=== PATIENT | female | born 1985 | race Caucasian/White ===

== ENCOUNTER → 2018-10-18 14:07 | Outpatient (CLI) | payer OTHER, SELFPAY ==
--- NOTE | 2018-10-18 14:16 | US_ITS ---
STUDY: FIRST TRIMESTER OBSTETRICAL ULTRASOUND REASON FOR EXAM: Female, 33 years old. Determination of dates and size LMP: 08/21/2018 TECHNIQUE: Both transabdominal and transvaginal probes were used TECHNICAL QUALITY: Adequate. PRIOR ULTRASOUND: None. FINDINGS: The study shows a gravid uterus measuring 10.1 x 8.0 x 2.4 cm. It contains a gestational sac with good decidual reaction around. Within the sac is seen developing embryo with a heart rate of 170 bpm and a crown-rump length of 2.0 cm compatible with 8 weeks 4 days +/- 5 days and an expected date of delivery of 05/26/2019. Using the LMP the expected dates would be 05/28/2019. Both ovaries are visualized and they both demonstrate normal Doppler flow. The right measures 2.0 x 2.1 x 2.7 cm and the left 2.5 x 2.6 x 1.6 cm.. US/Transvaginal w/Preg US IMPRESSION: An early intrauterine at 8 weeks 4 days +/- 5 days with an expected date of delivery of 05/26/2019. Using the LMP the expected age would be 05/28/2019 Electronically Signed: Robert Verma MD at 6:17 EST Tel , Service support ,
== END ==
PROVIDERS: Referring Provider Obstetrics & Gynecology; Visit Provider Obstetrics & Gynecology
DX: Z34.90 Encounter for supervision of normal pregnancy, unspecified, unspecified trimester (principal)
CPT/HCPCS: 76817

== ENCOUNTER → 2018-10-22 13:29 | Outpatient (CLI) | payer OTHER, SELFPAY ==
[2018-10-22 12:12] VITALS: BMI 36.3
[2018-10-22 14:33] LABS: Absolute Lymphocyte Count 1.85 X10^3/ul (0.83-4.51); Absolute Neutrophil Count 6.2 X10^3/uL (2.0-7.7); Basophil# 0.03 X10^3/uL; Basophil% 0.3 % (0-1); Eosinophil# 0.07 X10^3/uL; Eosinophils% 0.8 % (0-5); Hematocrit 37.5 % (37-47); Hemoglobin 12.1 g/dl (12.0-15.0); Lymphocyte # 1.85 X10^3/ul (4.0); Lymphocyte % 21.4 % (19-41); Mean Corp Hgb Conc 32.3 g/gl (32-36); Mean Corpuscular Hgb 25.9 pg (27.0-32.0); Mean Corpuscular Volume 80.1 fL (81-99); Mean Platelet Vol. 10.6 fl (6.2-12.0); Monocyte# 0.52 X10^3/uL; Neutrophil # 6.16 X10^3/uL (2.7-7.7); Neutrophil % 71.4 % (47-70); Platelet Count 289 K/mm3 (150-450); RBC Distribution Width SD 40.7 fl (35.1-43.9); Red Blood Count 4.68 M/mm3 (4.2-5.4); White Blood Count 8.6 K/mm3 (4.4-11.0)
[2018-10-22 14:35] LABS: POSITIVE COUNT NO; POSITIVE DIFFERENTIAL NO; POSITIVE MORPHOLOGY NO
[2018-10-22 15:44] LABS: HIV - WCH Non-Reactive (Nonreactive); Rubella IgG 91.8 IU/mL
[2018-10-24 13:39] LABS: HEPATITIS B SURFACE AG Negative (Negative)
[2018-10-29 01:41] LABS: Rapid Plasmin Reagin (RPR) NONREACTIVE (NONREACTIVE)
== END ==
PROVIDERS: Referring Provider Obstetrics & Gynecology; Visit Provider Obstetrics & Gynecology
DX: Z34.80 Encounter for supervision of other normal pregnancy, unspecified trimester (principal)
CPT/HCPCS: 36415; 85025; 86592; 86703; 86762; 86850; 86900; 87340

== ENCOUNTER → 2018-10-22 18:20 | Outpatient (CLI) | payer OTHER, SELFPAY ==
[2018-10-22 12:12] VITALS: BMI 36.3
[2018-10-23 00:25] LABS: Chlamydia Trachomatis by PCR Negative (Negative); Neisserai gonorrhoeae by PCR Negative (Negative); Probe Check PASS; Sample Adequacy Control PASS; Specimen Processing Control PASS
[2018-10-28 16:11] LABS: HPV APTIMA, High Risk Negative (Negative)
== END ==
PROVIDERS: Referring Provider Obstetrics & Gynecology; Visit Provider Obstetrics & Gynecology
DX: Z34.80 Encounter for supervision of other normal pregnancy, unspecified trimester (principal); Z12.4 Encounter for screening for malignant neoplasm of cervix
CPT/HCPCS: 87086; 87088; 87491; 87591; 87624; 88175; G0145

== ENCOUNTER → 2018-11-19 14:33 | Outpatient (CLI) | payer OTHER, SELFPAY ==
[2018-10-22 12:12] VITALS: BMI 36.3
== END ==
PROVIDERS: Referring Provider Obstetrics & Gynecology; Visit Provider Obstetrics & Gynecology
DX: Z34.81 Encounter for supervision of other normal pregnancy, first trimester (principal)

== ENCOUNTER → 2018-12-17 14:44 | Outpatient (CLI) | payer OTHER, SELFPAY ==
[2018-12-17 14:33] VITALS: BMI 36.3
== END ==
PROVIDERS: Referring Provider Nurse Practitioner Women's Health; Visit Provider Nurse Practitioner Women's Health
DX: Z36.9 Encounter for antenatal screening, unspecified (principal)
CPT/HCPCS: 36415

== ENCOUNTER → 2019-03-04 11:39 | Outpatient (CLI) | payer OTHER, SELFPAY ==
[2019-03-04 11:32] VITALS: BMI 36.4
[2019-03-04 12:30] LABS: Absolute Lymphocyte Count 1.33 X10^3/ul (0.83-4.51); Absolute Neutrophil Count 6.9 X10^3/uL (2.0-7.7); Basophil# 0.02 X10^3/uL; Basophil% 0.2 % (0-1); Eosinophil# 0.11 X10^3/uL; Eosinophils% 1.3 % (0-5); Hematocrit 32.8 % (37-47); Hemoglobin 10.9 g/dl (12.0-15.0); Lymphocyte # 1.33 X10^3/ul (4.0); Lymphocyte % 15.2 % (19-41); Mean Corp Hgb Conc 33.2 g/gl (32-36); Mean Corpuscular Hgb 26.7 pg (27.0-32.0); Mean Corpuscular Volume 80.2 fL (81-99); Mean Platelet Vol. 11.1 fl (6.2-12.0); Monocyte# 0.33 X10^3/uL; Monocyte% 3.8 % (0-10); Neutrophil # 6.93 X10^3/uL (2.7-7.7); Neutrophil % 79.3 % (47-70); POSITIVE COUNT NO; POSITIVE DIFFERENTIAL NO; POSITIVE MORPHOLOGY NO; Platelet Count 213 K/mm3 (150-450); RBC Distribution Width CV 14.4 % (11.6-14.6); RBC Distribution Width SD 41.7 fl (35.1-43.9); Red Blood Count 4.09 M/mm3 (4.2-5.4); White Blood Count 8.7 K/mm3 (4.4-11.0)
[2019-03-04 12:45] LABS: Glucose Challenge Gest 1H 50g 136 mg/dL (70-140)
== END ==
PROVIDERS: Visit Provider Obstetrics & Gynecology
DX: Z34.80 Encounter for supervision of other normal pregnancy, unspecified trimester (principal)
CPT/HCPCS: 36415; 82950; 85025

== ENCOUNTER → 2019-03-11 09:03 | Outpatient (CLI) | payer OTHER, SELFPAY ==
[2019-03-04 11:47] VITALS: BMI 36.4
[2019-03-11 10:53] LABS: Glucose GTT-Gestation. Fasting 74 mg/dL (<105)
[2019-03-11 10:55] LABS: Glucose GTT-Gestational 1 Hr 150 mg/dL (<190)
[2019-03-11 12:08] LABS: Glucose GTT-Gestational 2 Hr 145 mg/dL (<165)
[2019-03-11 13:24] LABS: Glucose GTT-Gestational 3 Hr 59 L (<145)
== END ==
PROVIDERS: Referring Provider Obstetrics & Gynecology; Visit Provider Obstetrics & Gynecology
DX: O99.810 Abnormal glucose complicating pregnancy (principal); Z3A.00 Weeks of gestation of pregnancy not specified
CPT/HCPCS: 36415; 82951; 82952

== ENCOUNTER → 2019-04-27 08:42 | Outpatient (CLI) | payer OTHER, SELFPAY ==
[2019-04-27 08:24] VITALS: BMI 36.4
[2019-04-27 10:18] LABS: Glucose Challenge Gest 1H 50g 111 mg/dL (70-140)
== END ==
PROVIDERS: Referring Provider Obstetrics & Gynecology; Visit Provider Obstetrics & Gynecology
DX: Z34.90 Encounter for supervision of normal pregnancy, unspecified, unspecified trimester (principal)
CPT/HCPCS: 36415; 82950

== ENCOUNTER → 2019-05-06 16:26 | Outpatient (CLI) | payer OTHER, SELFPAY ==
[2019-05-06 09:14] VITALS: BMI 36.4
[2019-05-06 17:29] LABS: Protein, Urine (Random) 119.1 mg/dL (<11.9); Protein:Creat Ratio 1561 mg/g CRE (0-200)
== END ==
PROVIDERS: Referring Provider Obstetrics & Gynecology; Visit Provider Obstetrics & Gynecology
DX: Z34.80 Encounter for supervision of other normal pregnancy, unspecified trimester (principal)
CPT/HCPCS: 82570; 84156; 87081

== ENCOUNTER 2019-05-10 13:30 | Inpatient (IN) | payer OTHER, SELFPAY ==
[2019-03-16 15:16] VITALS: BMI 36.4
[2019-05-10 11:37] VITALS: BMI 38.4
[2019-05-10 13:01] LABS: Protein, Urine (Random) 62.6 mg/dL (<11.9); Protein:Creat Ratio 2301 mg/g CRE (0-200)
[2019-05-10 13:16] LABS: Hematocrit 32.8 % (37-47); Hemoglobin 10.6 g/dL (12.0-15.0); Mean Corp Hgb Conc 32.3 g/dL (32-36); Mean Corpuscular Hgb 25.5 pg (27.0-32.0); Mean Platelet Vol. 13.4 fl (6.2-12.0); Platelet Count 171 K/mm3 (150-450); RBC Distribution Width CV 14.4 % (11.6-14.6); RBC Distribution Width SD 40.6 fl (35.1-43.9); Red Blood Count 4.15 M/mm3 (4.2-5.4); White Blood Count 8.5 K/mm3 (4.4-11.0)
[2019-05-10 13:38] LABS: AST(SGOT) 17 U/L (15-37); Alanine Aminotransfer ALT/SGPT 19 U/L (13-56); Creatinine, Serum 0.84 mg/dL (0.55-1.02); EST Glomerular Filtration Rate 82 mL/min (>60); Est Glom Filt Rate - Afr Amer 99 mL/min (>60); Uric Acid 7.8 mg/dL (2.6-6.0)
[2019-05-10 13:41] VITALS: BMI 38.2
[2019-05-10] MEDS: Lactated Ringers 1,000 ML 50 ML IV (13:45)
[2019-05-10] MEDS: Labetalol 200 MG Tablet PO (14:20)
[2019-05-10] MEDS: Magnesium Sulfate 20 GM/500 ML BAG IV (14:20)
[2019-05-10] MEDS: Oxytocin 30 units/NS 500 ml 30 UNITS/500 ML IV.SOLN IV (16:45)
[2019-05-10] MEDS: 0.9% Normal Saline 100 ML IV.SOLN. INTRA-UTER (17:30)
[2019-05-10] MEDS: Nalbuphine 10 MG/ML Ampul IV (18:00)
[2019-05-10] MEDS: NIFEdipine 30 MG Tablet PO (21:05)
[2019-05-10] MEDS: Acetaminophen 325 MG Tablet PO (21:44)
[2019-05-10] MEDS: Labetalol 200 MG Tablet 300 MG PO (21:48)
[2019-05-10] MEDS: 0.9% Saline Lock 10 ML Syringe IV (21:54)
[2019-05-10] MEDS: Ondansetron 4 MG/2 ML Vial IV (21:54)
--- NOTE | 2019-05-10 23:55 | PCM.HP.OB ---
- Problem List (1) Severe pre-eclampsia affecting first Status: Acute (2) Request for sterilization Status: Acute Comment: desires PPTL (3) macrosomia Status: Acute Qualifiers: Comment: repeat US in 4 weeks. Rpt 1 hr GCT WNL 04/27/19 (4) HSV-2 seropositive Status: Acute Comment: valtrex 36 wk (5) Anxiety Status: Acute Comment: no meds (6) Status: Acute Qualifiers: Comment: Low risk NIPT, AFP ordered. MFM US ordered 2 wk fu spine views AFP results negative (7) Supervision of other normal Status: Acute Comment: PRR OZ 05/28/19 PC Seymour Spouse:Yoni History Date of Admission: 05/10/19 Final OZ: 05/28/19 Gestational age: 37 Weeks and 3 Days History of this : This is a 34 year-old, , at 37 weeks gestational age presents with preeclampsia with severe features of bps in the 160s over 90s. she was given two doses of IV labetalol upon admission and started on maintenance labetalol. she denies any bleeding or lof, admits good fm. she has had macrosomia. Medical History: Medical History (Last Reviewed 05/10/19 @ 11:34 by Irene Branch) Allergic rhinitis J30.9 Cervical dysplasia N87.9 Hyperlipidemia E78.5 Allergies No Known Allergies Allergy (Verified 05/10/19 13:35) Home Medications: Home Medications valacyclovir 500 mg tablet 500 mg PO QDAY #90 tab 03/31/19 budesonide-formoterol HFA 80 mcg-4.5 mcg/actuation aerosol inhaler 2 puff INHALATION BID 04/15/19 vitamin#30 30 mg iron-10 mg iron-folic acid 1 mg-omg3 capsule cap PO cap 04/15/19 Smoking Status: Never smoker Alcohol: None Number of Fetus(es): 1 Heart Tracin moderate variability reactive no decelerations category I tracing [place]: no regular History Past Pregnancies: Past Pregnancies 3 previous early miscarriages Labs: Mom's Labs & Results 05/10/19 05/10/19 05/10/19 12:30 13:00 13:00 WBC 8.5 RBC 4.15 L Hgb 10.6 L Hct 32.8 L MCV 79.0 L MCH 25.5 L MCHC 32.3 RDW Std Deviation 40.6 RDW Coeff of Jaime 14.4 Plt Count 171 MPV 13.4 H PT 13.0 INR 1.0 APTT 29.0 Creatinine Est GFR (MDRD) Af Amer Est GFR (MDRD) Non-Af Uric Acid AST ALT U Random Total Protein 62.6 H Urine Creatinine 27.20 Protein/Creatinin Ratio 2301 H Blood Type Antibody Screen 05/10/19 05/10/19 13:00 13:00 WBC RBC Hgb Hct MCV MCH MCHC RDW Std Deviation RDW Coeff of Jaime Plt Count MPV PT INR APTT Creatinine 0.84 Est GFR (MDRD) Af Amer 99 Est GFR (MDRD) Non-Af 82 Uric Acid 7.8 H AST 17 ALT 19 U Random Total Protein Urine Creatinine Protein/Creatinin Ratio Blood Type O POSITIVE Antibody Screen NEGATIVE Course Did the patient receive Yes care? Labs Blood Type: O RH: POSITIVE RPR/VDRL/Syphilis Nonreactive Rubella status Immune HbSAg Negative Date Done: 10/22/18 Chlamydia Negative Gonorrhea Negative HIV/AIDS Non-Reactive Group B Strep: Negative Current Obstetrical History Gestational Diabetes No Incompetent Cervix No Infertility No IUGR No Macrosomia Yes Hypertension/Pre-eclampsia Yes Placenta Previa/Abruption No PTL/PROM No Uterine anomaly No Oligohydramnios No Polyhydramnios No Multiple gestation No Past Medical History Asthma No Diabetes No Hypertension No Heart disease No Mitral valve prolapse No Neurologic/Seizure disorder/ No Migraines Kidney disease No Liver disease No Varicosities Yes Clotting disorders/Hx of DVT No Thyroid Dysfunction No Other medical diseases No Psychiatric disorders Yes: PTSD Major trauma No Abnormal PAP smear Yes: cervical dysplasia Sleep apnea No Mammogram in the last 2 years Yes Social History Marital Status: Alleged father Filemon Hx Smoking No Smoking Status Never smoker Expected Delivery Method: Spontaneous Vaginal Review of Systems Constitutional: Denies: Fever, Malaise Eyes: Denies: Blurred vision, Vision Change HEENT: Denies: Head Aches, Visual Changes Cardiovascular: Denies: Chest Pain, Palpitations Respiratory: Denies: Cough, Shortness of Breath, Wheezing Gastrointestinal: Denies: Abdominal Pain, Diarrhea, Nausea, Vomiting Genitourinary: Denies: Dysuria, Hematuria Musculoskeletal: Denies: Joint Pain, Muscle pain Skin: Denies: Lesions, Rash Neurological: Denies: Blurred vision, Focal weakness, Headaches Psychiatric: Denies: Anxiety, Depression Endocrine: Denies: Heat/ Cold Intolerance Hematologic/ Lymphatic: Denies: Easy Bruising, Easy Bleeding Physical Exam General: Alert, Cooperative, No apparent distress HEENT: Atraumatic, Normocephalic. Negative for: Thyromegaly, Lymphadenopathy Cardiovascular: Regular rate Lungs: Normal air movement Abdomen: Soft, Non Tender, Gravid Neurological: Deep Tendon Reflexes 2+/4 and Symmetrical, Neuro grossly intact. Negative for: Clonus MEDICAL CARE ADMINISTRATOR: Normal external genitalia. Negative for: Vulvar lesions Estimated gestational size: Large for gestational age Presentation: Cephalic Cervix Dilation (cm): 1 Station: -3 Effacement (%): 20 Assessment/Plan All Active Problems (Last Reviewed 05/10/19 @ 11:34 by Irene Branch) Severe pre-eclampsia affecting first (Acute) Proteinuria affecting (Acute) Request for sterilization (Acute) macrosomia (Acute) HSV-2 seropositive (Acute) Anxiety (Acute) (Acute) Supervision of other normal (Acute) Normal glucose level (Resolved) This is a 34 year-old, at 37 weeks gestational age with preeclampsia with severe features. Patient presents IOL, plan management for , pitocin/AROM clear fluid after ayon. Pain management: plans epidural. GBS negative. Management of any complications: magnesium sulfate and labetalol, procardia added I have reviewed the [facility] and made any clinically relevant updates.
[2019-05-11] MEDS: Lactated Ringers 1,000 ML 50 ML IV ×2 (00:59→12:50)
[2019-05-11] MEDS: fentaNYL-bupivacaine (epidural) 100 ML BAG EPIDURAL ×5 (01:04→21:11)
[2019-05-11] MEDS: Mag Hydrox/Al Hydrox/Simeth 30 ML UDC PO (01:13)
[2019-05-11] MEDS: Magnesium Sulfate 20 GM/500 ML BAG IV ×3 (01:42→21:10)
[2019-05-11] MEDS: Acetaminophen 325 MG Tablet PO (04:00)
[2019-05-11] MEDS: 0.9% Saline Lock 10 ML Syringe IV (04:01)
[2019-05-11] MEDS: Ondansetron 4 MG/2 ML Vial IV ×3 (04:01→12:25)
[2019-05-11] MEDS: proCHLORPERazine 10 MG/2 ML Vial IV (05:12)
[2019-05-11] MEDS: Labetalol 200 MG Tablet 300 MG PO (10:57)
[2019-05-11] MEDS: DiphenhydrAMINE 50 MG/ML Syringe 25 MG IV (13:13)
[2019-05-11] MEDS: Oxytocin 30 units/NS 500 ml 30 UNITS/500 ML IV.SOLN IV (16:40)
--- NOTE | 2019-05-11 17:46 | PCM.PN.BLA ---
Progress Note fht 135 moderate varibiability reactive occasional variable. cat II tracing. continue pit at 26 mU with improved contraction pattern. slow cervical change about 1 cm every 2 hours for the last 6 hours. dicsussed and will still continue exp management.
--- NOTE | 2019-05-11 21:54 | PCM.PN.BLA ---
Progress Note patient is 9-10 cm. will sit up and labor down for 1 hour and recheck. 130 minimal -moderate variability positive scalp stimulation and occasional variable deceleration and early decels. cat II tracing but overall reassuring and has made progress in the last 2 hours. continue pitocin
[2019-05-11] MEDS: Amnioinfusion- 0.9% NS 1,000 ML IV.SOLN. INTRA-UTER (22:10)
[2019-05-12] VITALS (17 sets, daily range): BP systolic 101–151; BP diastolic 53–87; PULSE 62–87; RESP 16–20; TEMP 35.9–36.5; O2SAT 95–97
[2019-05-12] MEDS: Labetalol 200 MG Tablet 300 MG PO (00:56)
--- NOTE | 2019-05-12 01:01 | PCM.OPRPT ---
Problem List (1) Severe pre-eclampsia affecting first Status: Acute (2) Request for sterilization Status: Acute Comment: desires PPTL (3) macrosomia Status: Acute Qualifiers: Comment: repeat US in 4 weeks. Rpt 1 hr GCT WNL 04/27/19 (4) HSV-2 seropositive Status: Acute Comment: valtrex 36 wk (5) Anxiety Status: Acute Comment: no meds (6) Status: Acute Qualifiers: Comment: Low risk NIPT, AFP ordered. MFM US ordered 2 wk fu spine views AFP results negative (7) Supervision of other normal Status: Acute Comment: PRR OZ 05/28/19 PC Seymour Spouse:Yoni Vaginal Delivery Maternal Presentation: Medically Indicated Induction iol preeclampsia 37w1d severe bps Method of Induction: Pitocin, Collins Bulb Amniotic Membrane Rupture Type: Artificial Amniotic Fluid Description: Clear Final OZ: 05/30/19 Gestational age: 37 Weeks and 3 Days Date of Procedure: 05/12/19 - \ Pre-Operative Diagnosis: preeclampsia with severe features Post-Operative Diagnosis: same Surgery/ Procedure Performed: Spontaneous Vaginal Delivery Type of Anesthesia: Epidural Description of Procedure: Patient began pushing and delivered the head in the REBECCA presentation. The head was delivered atraumatically . The anterior and posterior shoulders delivered without complication followed by the rest of the and the was placed on the maternal abdomen. Delayed cord clamping was employed for approximately 60 seconds. Cord was clamped and cut and gentle traction was applied to the cord and the placenta delivered spontaneously immediately following it was noted to be intact with three-vessel cord. The perineum and vagina were inspected and noted to have a first-degree perineal laceration was repaired in the usual fashion with 3-0 Vicryl repeat. EBL was 400 cc. Patient and infant tolerated delivery well. Presentation: REBECCA Placental Delivery Description: Spontaneous Placenta Disposition: [facility] Cord Vessel Description: 3 Vessels Cord Entanglement: None Estimated Blood Loss: 400 Infant A gender: Male Episiotomy Description: None Laceration: Perineal Extension/lac, 1st degree Medications given after delivery: IV Pitocin Complications: None
[2019-05-12] MEDS: Oxytocin 30 units/NS 500 ml 30 UNITS/500 ML IV.SOLN 334 UNITS IV (01:39)
[2019-05-12] MEDS: Oxytocin 30 units/NS 500 ml 30 UNITS/500 ML IV.SOLN 167 UNITS IV (02:11)
[2019-05-12] MEDS: Lactated Ringers 1,000 ML 15 ML IV ×2 (02:25→09:11)
[2019-05-12] MEDS: Naproxen 250 MG Tablet 500 MG PO ×2 (03:45→14:03)
[2019-05-12 05:58] LABS: Absolute Lymphocyte Count 0.73 X10^3/uL (0.83-4.51); Absolute Neutrophil Count 19.2 X10^3/uL (2.0-7.7); Basophil# 0.02 X10^3/uL; Basophil% 0.1 % (0-1); Eosinophil# 0.13 X10^3/uL; Eosinophils% 0.6 % (0-5); Hematocrit 28.1 % (37-47); Lymphocyte # 0.73 X10^3/ul (4.0); Lymphocyte % 3.4 % (19-41); Mean Corpuscular Hgb 25.5 pg (27.0-32.0); Mean Corpuscular Volume 79.6 fL (81-99); Mean Platelet Vol. 12.9 fl (6.2-12.0); Monocyte# 0.84 X10^3/uL; Monocyte% 3.9 % (0-10); NRBC Flagged by Analyzer 0 % (0-5); Neutrophil # 19.22 X10^3/uL (2.7-7.7); Neutrophil % 90.4 % (47-70); POSITIVE MORPHOLOGY YES; Platelet Count 179 K/mm3 (150-450); RBC Distribution Width CV 14.9 % (11.6-14.6); RBC Distribution Width SD 42.8 fl (35.1-43.9); Red Blood Count 3.53 M/mm3 (4.2-5.4); White Blood Count 21.3 K/mm3 (4.4-11.0)
[2019-05-12 06:11] LABS: Differential Indicated SCAN CRITERIA MET
[2019-05-12 06:15] LABS: Anion Gap 13 (5-15); BUN 14 mg/dL (7-18); Chloride 103 mmol/L (98-107); EST Glomerular Filtration Rate 46 mL/min (>60); Est Glom Filt Rate - Afr Amer 55 mL/min (>60); Estimated Creatinine Clearance 53.01 ml/min; Glucose 119 mg/dL (74-106); Potassium 3.9 mmol/L (3.5-5.1); Sodium Level 134 mmol/L (136-145)
[2019-05-12 06:59] LABS: Differential Comment SCANNED
--- NOTE | 2019-05-12 09:26 | PCM.PN.OB ---
Patient Problems: Active and Suspected Problems (Last Reviewed 05/10/19 @ 11:34 by Irene Branch) Severe pre-eclampsia affecting first (Acute) Subjective: Patient has had some intermittent shortness of breath since the end of labor but is noticed increased particular with positioning . She feels it is a side effect of magnesium and she feels drowsy and uncomfortable on the medication. Blood pressures are low normal and patient denies any headache or blurry vision. No chest pain cough or wheezing. Vital signs stable afebrile - Physical Exam General: Lethargic Oral: Dry Mucosa Lungs: Clear to auscultation, Diminished - Some diminished in certain positions but with moving patient lung flores are clear Cardiovascular: Regular rate Abdomen: Soft, Non Tender Neurological: - - 0-1+ reflexes no clonus Vital Signs Pulse Resp BP Pulse Ox 77 16 108/56 L 95 05/12/19 06:59 05/12/19 06:59 05/12/19 06:59 05/12/19 06:59 Oxygen Delivery Method Room Air Weight: 236 lb 15.951 oz Body Mass Index (BMI) 38.2 Intake and Output for Last 24 Hours 05/10/19 05/11/19 05/12/19 23:59 23:59 23:59 Intake Total 689 / 689 5063 / 5063 1075 / 1075 Output Total 200 / 200 2571 / 2571 655 / 655 Balance 489 / 489 2492 / 2492 420 / 420 Laboratory Tests Past 24 Hrs 05/12/19 05/12/19 05:45 05:45 WBC 21.3 H RBC 3.53 L Hgb 9.0 L Hct 28.1 L MCV 79.6 L MCH 25.5 L MCHC 32.0 RDW Std Deviation 42.8 RDW Coeff of Jaime 14.9 H Plt Count 179 MPV 12.9 H Immature Gran % (Auto) 1.600 H Neut % (Auto) 90.4 H Lymph % (Auto) 3.4 L Willacy % (Auto) 3.9 Eos % (Auto) 0.6 Baso % (Auto) 0.1 Absolute Neuts (auto) 19.2 H Absolute Lymphs (auto) 0.73 L Absolute Nucleated RBC 0.00 Nucleated RBC % 0 Differential Comment SCANNED Sodium 134 L Potassium 3.9 Chloride 103 Carbon Dioxide 18.0 L Anion Gap 13 BUN 14 Creatinine 1.40 H Estim Creat Clear Calc 53.01 Est GFR (MDRD) Af Amer 55 L Est GFR (MDRD) Non-Af 46 L BUN/Creatinine Ratio 10.0 Glucose 119 H Calcium 7.0 L Medical Necessity - Tobacco Use Smoking Status: Never smoker Assessment/Plan All Active Problems (Last Reviewed 05/10/19 @ 11:34 by Irene Branch) Severe pre-eclampsia affecting first (Acute) Proteinuria affecting (Acute) Request for sterilization (Acute) macrosomia (Acute) HSV-2 seropositive (Acute) Anxiety (Acute) (Acute) Supervision of other normal (Acute) Normal glucose level (Resolved) Patient was day 0 vaginal delivery severe preeclampsia. Blood pressures within normal limits and no headache, discussed with patient and will hold magnesium to see if symptoms improve and if not recommend chest x-ray. Ordered mag level. Restart magnesium if change in blood pressures or become symptomatic
--- NOTE | 2019-05-12 10:35 | NURSING ---
PT to AC for pp tubal
[2019-05-12 11:16] LABS: ALB/GLOB Ratio 0.6 RATIO (0.9-2.4); AST(SGOT) 15 U/L (15-37); Alanine Aminotransfer ALT/SGPT 12 U/L (13-56); Albumin, Serum 1.9 g/dL (3.2-5.0); Alkaline Phosphatase 161 U/L (45-117); Anion Gap 8 (5-15); BUN 15 mg/dL (7-18); BUN/Creat Ratio 10.1 RATIO (10-20); Calcium,Total 7.2 mg/dL (8.5-10.1); Chloride 103 mmol/L (98-107); Creatinine, Serum 1.49 mg/dL (0.55-1.02); EST Glomerular Filtration Rate 43 mL/min (>60); Est Glom Filt Rate - Afr Amer 51 mL/min (>60); Globulin 3.4 g/dL (2.2-4.2); Glucose 103 mg/dL (74-106); Magnesium 9.7 mg/dL (1.6-2.6); Potassium 3.9 mmol/L (3.5-5.1); Protein, Total 5.3 g/dL (6.4-8.2); Sodium Level 132 mmol/L (136-145)
[2019-05-12] MEDS: Bupivacaine 0.25% 30 ML Vial (11:40)
--- NOTE | 2019-05-12 11:49 | PCM.OPRPT ---
Problem List (1) Severe pre-eclampsia affecting first Status: Acute (2) Request for sterilization Status: Acute Comment: desires PPTL (3) macrosomia Status: Acute Qualifiers: Comment: repeat US in 4 weeks. Rpt 1 hr GCT WNL 04/27/19 (4) HSV-2 seropositive Status: Acute Comment: valtrex 36 wk (5) Anxiety Status: Acute Comment: no meds (6) Status: Acute Qualifiers: Comment: Low risk NIPT, AFP ordered. MFM US ordered 2 wk fu spine views AFP results negative (7) Supervision of other normal Status: Acute Comment: PRR OZ 05/28/19 PC Seymour Spouse:Yoni Report of Operation Date of Procedure: 05/12/19 Pre-Operative Diagnosis: sterilization Post-Operative Diagnosis: same Surgery/Procedure Performed:: tubal ligation Description of Surgical Findings:: normal tubes and uterus engineering assistant: Tammy Condon Type of Anesthesia:: Epidural, Local Special Medications: none Specimen's removed: none Drains: ayon Estimated Blood Loss (mL): 10 Fluids Replaced: crystalloid Description of Procedure: Patient was taken to the operating room and epidural anesthesia was found to be adequate. Patient was placed in the dorsal supine position was prepped and draped in normal sterile fashion. Ayon catheter was used to drain the bladder. Infra umbilical incision was made with a scalpel after injecting with marcaine and carried through the underlying layer of the fascia with a scalpel fascial incision was extended bilaterally with Del Rosario scissors and bowel packed away and the right fallopian tube identified confirmed to be fallopian tube by following it out to the fimbria and a Filshie clip was applied in the mid interstitial portion of the fallopian tube noting to completely transect the tube. This was repeated on the left side where the tube was identified and followed out to the fimbria and confirmed to be fallopian tube and then the mid interstitial portion of the tube was completely transected with the Filshie clip. Excellent hemostasis was noted. Fascia was closed with 0 Vicryl and skin closed with 3-0 Monocryl. No complications. Patient was taken recovery in stable condition. Grafts/Implants Used: filshie clips x 2 - Complications none - Admit VTE Documentation VTE Present on Admission: No
--- NOTE | 2019-05-12 13:50 | NURSING ---
Ayon cath removed after 10 cc normal saline removed from ayon balloon.
[2019-05-12] MEDS: 0.9% Saline Lock 10 ML Syringe IV (13:53)
[2019-05-12] MEDS: NIFEdipine 30 MG Tablet PO (13:53)
[2019-05-12] MEDS: Acetaminophen 500 MG Tablet 1000 MG PO (20:40)
[2019-05-13 01:30] VITALS: BP 143/77; PULSE 86; RESP 18; TEMP 36.6
[2019-05-13 04:00] VITALS: BP 127/72; PULSE 80; RESP 18; TEMP 36.7
[2019-05-13 08:00] VITALS: BP 124/72; PULSE 80; RESP 16; TEMP 37; O2SAT 97
[2019-05-13] MEDS: Naproxen 250 MG Tablet 500 MG PO ×2 (08:11→16:32)
[2019-05-13] MEDS: NIFEdipine 30 MG Tablet PO (11:51)
[2019-05-13 15:08] LABS: Hematocrit 25.5 % (37-47); Hemoglobin 8.2 g/dL (12.0-15.0); Mean Corp Hgb Conc 32.2 g/dL (32-36); Mean Corpuscular Hgb 25.6 pg (27.0-32.0); Mean Corpuscular Volume 79.7 fL (81-99); Mean Platelet Vol. 11.5 fl (6.2-12.0); Platelet Count 192 K/mm3 (150-450); RBC Distribution Width CV 15.4 % (11.6-14.6); RBC Distribution Width SD 44.7 fl (35.1-43.9); White Blood Count 11.8 K/mm3 (4.4-11.0)
[2019-05-13 15:20] VITALS: BP 134/74; PULSE 84; RESP 16; TEMP 36.8
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
--- NOTE | 2019-05-13 17:24 | PCM.PN.OB ---
Patient Problems: Active and Suspected Problems (Last Reviewed 05/10/19 @ 11:34 by Irene Branch) Severe pre-eclampsia affecting first (Acute) Subjective: doing well no complaints pain controlled no CP SOB N V ambulating well tolerating po lochia moderate, going well - Physical Exam General: Alert, Oriented x3 Vital Signs Temp Pulse Resp BP Pulse Ox 98.3 F 84 16 134/74 H 97 05/13/19 15:20 05/13/19 15:20 05/13/19 15:20 05/13/19 15:20 05/13/19 08:00 Oxygen Delivery Method Room Air Weight: 236 lb 15.951 oz Body Mass Index (BMI) 38.2 Intake and Output for Last 24 Hours 05/11/19 05/12/19 05/13/19 23:59 23:59 23:59 Intake Total 5063 / 5063 2679 / 2679 Output Total 2571 / 2571 1471 / 1471 Balance 2492 / 2492 1208 / 1208 Laboratory Tests Past 24 Hrs 05/13/19 15:00 WBC 11.8 H RBC 3.20 L Hgb 8.2 L Hct 25.5 L MCV 79.7 L MCH 25.6 L MCHC 32.2 RDW Std Deviation 44.7 H RDW Coeff of Jiame 15.4 H Plt Count 192 MPV 11.5 Medical Necessity - Tobacco Use Smoking Status: Never smoker Assessment/Plan All Active Problems (Last Reviewed 05/10/19 @ 11:34 by Irene Branch) Severe pre-eclampsia affecting first (Acute) Proteinuria affecting (Acute) Request for sterilization (Acute) macrosomia (Acute) HSV-2 seropositive (Acute) Anxiety (Acute) (Acute) Supervision of other normal (Acute) Normal glucose level (Resolved) s/p PPD # 1 1. routine post delivery care 2. breast feeding- support given 3. rh positive 4. rubella immune severe preeclampsia- on procardia.
[2019-05-13 20:10] VITALS: BP 135/78; PULSE 86; RESP 18; TEMP 36.6
[2019-05-14] MEDS: Naproxen 250 MG Tablet 500 MG PO ×2 (00:47→09:07)
[2019-05-14 02:00] VITALS: BP 145/82; PULSE 72; RESP 18; TEMP 36.4
[2019-05-14 08:20] VITALS: BP 141/86; PULSE 80; RESP 16; TEMP 36; O2SAT 98
--- NOTE | 2019-05-14 09:29 | PCM.PN.OB ---
Patient Problems: Active and Suspected Problems (Last Reviewed 05/10/19 @ 11:34 by Irene Branch) Severe pre-eclampsia affecting first (Acute) Subjective: doing well no complaints pain controlled no CP SOB N V ambulating well tolerating po lochia moderate, going well - Physical Exam General: Alert, Oriented x3 Vital Signs Temp Pulse Resp BP Pulse Ox 96.8 F L 80 16 141/86 H 98 05/14/19 08:20 05/14/19 08:20 05/14/19 08:20 05/14/19 08:20 05/14/19 08:20 Oxygen Delivery Method Room Air Weight: 236 lb 15.951 oz Body Mass Index (BMI) 38.2 Intake and Output for Last 24 Hours 05/12/19 05/13/19 05/14/19 23:59 23:59 23:59 Intake Total 2679 / 2679 Output Total 1471 / 1471 Balance 1208 / 1208 Laboratory Tests Past 24 Hrs 05/13/19 15:00 WBC 11.8 H RBC 3.20 L Hgb 8.2 L Hct 25.5 L MCV 79.7 L MCH 25.6 L MCHC 32.2 RDW Std Deviation 44.7 H RDW Coeff of Jaime 15.4 H Plt Count 192 MPV 11.5 Medical Necessity - Tobacco Use Smoking Status: Never smoker Assessment/Plan All Active Problems (Last Reviewed 05/10/19 @ 11:34 by Irene Branch) Severe pre-eclampsia affecting first (Acute) Proteinuria affecting (Acute) Request for sterilization (Acute) macrosomia (Acute) HSV-2 seropositive (Acute) Anxiety (Acute) (Acute) Supervision of other normal (Acute) Normal glucose level (Resolved) s/p PPD # 2 1. routine post delivery care 2. breast feeding- support given 3. rh positive 4. rubella immune severe preeclampsia- on procardia.
--- NOTE | 2019-05-14 09:32 | PCM.DC.SUM ---
Discharge Date and Diagnosis - Problem List Patient Problems: Active and Suspected Problems (Last Reviewed 05/10/19 @ 11:34 by Irene Branch) Severe pre-eclampsia affecting first (Acute) Date of Admission: 05/10/19 Date of Discharge: 05/14/19 - Primary Discharge Diagnosis Active and Suspected Problems (Last Reviewed 05/10/19 @ 11:34 by Irene Branch) Severe pre-eclampsia affecting first (Acute) Hospital Course and Treatment Consultations 05/10/19 13:31 Consult: Anesthesia Routine Comment: Reason For Exam: LABOR Operations: - - pptl Summary of Care Provided: The patient is a 34 year old F presents with severe preeclampsia, was induced and delivered , treated with procardia and labetalol antepartum and procardia , had a pptl on PPD 0, recovered well and was stable for dc home Patient Problems: Active and Suspected Problems (Last Reviewed 05/10/19 @ 11:34 by Irene Branch) Severe pre-eclampsia affecting first (Acute) - Physical Exam Vital Signs Temp Pulse Resp BP Pulse Ox 96.8 F L 80 16 141/86 H 98 05/14/19 08:20 05/14/19 08:20 05/14/19 08:20 05/14/19 08:20 05/14/19 08:20 Oxygen Delivery Method Room Air Weight: 236 lb 15.951 oz Body Mass Index (BMI) 38.2 Intake and Output for Last 24 Hours 05/12/19 05/13/19 05/14/19 23:59 23:59 23:59 Intake Total 2679 / 2679 Output Total 1471 / 1471 Balance 1208 / 1208 Laboratory Tests Past 24 Hrs 05/13/19 15:00 WBC 11.8 H RBC 3.20 L Hgb 8.2 L Hct 25.5 L MCV 79.7 L MCH 25.6 L MCHC 32.2 RDW Std Deviation 44.7 H RDW Coeff of Jaime 15.4 H Plt Count 192 MPV 11.5 Home Medications: Medications to take at Discharge valacyclovir 500 mg tablet 500 mg PO QDAY #90 tab 03/31/19 budesonide-formoterol HFA 80 mcg-4.5 mcg/actuation aerosol inhaler 2 puff INHALATION BID 04/15/19 vitamin#30 30 mg iron-10 mg iron-folic acid 1 mg-omg3 capsule cap PO cap 04/15/19 Primary Care Physician: Care Physician,No Primary [Primary Care Provider] - Medical Necessity - Tobacco Use Smoking Status: Never smoker Meaningful Use Info Meaningful Use Diagnoses (Choose all that apply): None applicable
--- NOTE | 2019-05-14 09:37 | DCINST_ITS ---
Discharge Diet: No Restrictions Discharge Activity: Return to Normal Activity, May not drive while taking narcotic pain medications., May Shower May resume sexual activity in: 4-6 weeks Call your doctor if your incision/area has: Continuous Slow Oozing, Sudden Increased Bleeding, Increased Pain/ Swelling, Increased Redness, Foul Smelling Discharge, - - blood pressures over 160/110 Call your doctor if you observe: Fever of 101 or Higher, Shortness of breath, - - headache, change in vision, nausea and vomiting or right upper belly pain Additional Instructions: check blood pressures twice daily and record them to bring into the office. If you experience any of the following, contact your healthcare provider. * Bleeding that soaks a pad every hour for 2 hours * Fever 100.4 or higher * Unrelieved incision or abdominal pain * Swelling, redness, discharge or bleeding from your incision or episiotomy site * Your incision begins to separate * Problems urinating (including inability to urinate or burning while urinating). * Visual changes * Severe headache * Flu-like symptoms * Pain or redness in one of both of your breasts * Pain, warmth, tenderness or swelling in your legs, especially the calf area * Frequent nausea and vomiting * Symptoms of depression or anxiety If you experience any of the following, call 911 or go to the nearest Emergency Room. * Chest pain * Problems breathing * Seizure activity * Partial or complete paralysis of a body part, slurred speech, weakness or drooping of the face, or a sudden inability to walk or hold your balance Allergies/Adverse Reactions: Allergies No Known Allergies Allergy (Verified 05/10/19 13:35) Medications to take at Discharge valacyclovir 500 mg tablet 500 mg PO QDAY #90 tab 03/31/19 budesonide-formoterol HFA 80 mcg-4.5 mcg/actuation aerosol inhaler 2 puff INHALATION BID 04/15/19 vitamin#30 30 mg iron-10 mg iron-folic acid 1 mg-omg3 capsule cap PO cap 04/15/19 Naproxen [Naprosyn] 250 - 500 mg PO Q8H PRN PRN #30 tab 05/14/19 Nifedipine [Procardia Xl] 30 mg PO DAILY #30 tab.er.24 05/14/19 The following prescriptions were given: Naproxen [Naprosyn] 250 - 500 mg PO Q8H PRN PRN #30 tab PRN Reason: MILD PAIN Transmission Status: Pending to [facility] Nifedipine [Procardia Xl] 30 mg PO DAILY #30 tab.er.24 Transmission Status: Pending to [facility] Please Follow Up With: Marcie King MD - [phone] When: Call to make an appointment with your doctor in 6 weeks and a nurse visit in 1 week for a blood pressure check Please Follow Up With: Rain Roach MD - in 2-3 weeks, can also see susannah angelo NP with [facility] Primary Care Physician: Care Physician,No Primary [Primary Care Provider] - Test Results: Test results from this visit will be discussed in further detail at your follow- up appointment, if applicable.
[2019-05-14] MEDS: NIFEdipine 30 MG Tablet PO (10:29)
[2019-05-14 12:40] VITALS: BP 140/81
== END 2019-05-14 12:45 | disposition home or self-care (01) | DRG 797 ==
LOC: WPOUT 13:33 → WP 13:35
PROVIDERS: Admitting Provider Obstetrics & Gynecology; Referring Provider Obstetrics & Gynecology; Visit Provider Obstetrics & Gynecology
PROC: 0UL70ZZ Occlusion of Bilateral Fallopian Tubes, Open Approach (ICD-10-PCS; principal; 2019-05-12 14:45)
DX: O14.14 Severe pre-eclampsia complicating childbirth (principal); O98.513 Other viral diseases complicating pregnancy, third trimester; Z37.0 Single live birth; O36.0130 Maternal care for anti-D [Rh] antibodies, third trimester, not applicable or unspecified; O76 Abnormality in fetal heart rate and rhythm complicating labor and delivery; B00.9 Herpesviral infection, unspecified; O36.63X0 Maternal care for excessive fetal growth, third trimester, not applicable or unspecified; O26.23 Pregnancy care for patient with recurrent pregnancy loss, third trimester; O70.0 First degree perineal laceration during delivery; O99.214 Obesity complicating childbirth; E66.01 Morbid (severe) obesity due to excess calories; O99.513 Diseases of the respiratory system complicating pregnancy, third trimester; J45.909 Unspecified asthma, uncomplicated; O99.344 Other mental disorders complicating childbirth; F41.9 Anxiety disorder, unspecified; F43.10 Post-traumatic stress disorder, unspecified; Z3A.37 37 weeks gestation of pregnancy; Z30.2 Encounter for sterilization; Z87.410 Personal history of cervical dysplasia
CPT/HCPCS: 59025; 59050; 80048; 80053; 82565; 82570; 83735; 84156; 84450; 84460; 84550; 85025; 85027; 85610; 85730; 86850; 86900; 99218; J7030; J7120; A4216; G0378; J2405

== ENCOUNTER → 2020-05-30 08:05 | Outpatient (CLI) | payer OTHER, SELFPAY ==
[2019-06-22 14:55] VITALS: BMI 38.2
--- NOTE | 2020-05-30 08:08 | BI_ITS ---
MAMMOGRAPHY - BILATERAL SCREENING 3-D TOMOSYNTHESIS REASON FOR EXAM: Female, 35 years old. Annual screening mammogram. PERTINENT HISTORY: Family history of breast cancer in mother. TECHNIQUE: 2-D mammograms and 3-D Tomosynthesis of the breast (s) were performed. CAD was performed. COMPARISON: Prior comparison mammograms from [place] have not arrived. When they arrive, an addendum can be provided. FINDINGS: The breast composition is composed of scattered fibroglandular density. Scattered benign calcifications are seen. No dense spiculated masses or suspicious microcalcifications are identified. No architectural distortion is identified. There is no skin thickening or retraction. There has been no significant change since the prior study. BI/SCREEN MAMM (CAD) W/LIANA BILAT IMPRESSION: No mammographic signs of malignancy. Routine yearly mammograms recommended. ASSESSMENT CATEGORY: BIRADS Category 2: Benign. A letter regarding these results will be sent to the patient by the facility within 30 days. FOLLOW UP RECOMMENDATION: Yearly follow up mammogram recommended. (A) Approximately 10% of breast cancers are not detected by mammography. A normal mammogram should not delay biopsy of a clinically suspicious abnormality. Electronically Signed: Cameron Acosta MD at 14:53 EDT , Service support ,
== END ==
PROVIDERS: Referring Provider Nurse Practitioner Family; Visit Provider Nurse Practitioner Family
DX: Z12.31 Encounter for screening mammogram for malignant neoplasm of breast (principal); Z80.3 Family history of malignant neoplasm of breast
CPT/HCPCS: 77063; 77067